=== PATIENT | female | born 1945 | race Caucasian/White ===

== ENCOUNTER → 2021-01-07 | Day surgery (SDC) | payer MEDICARE ==
[~2021-01-07] MED LIST: AMLODIPINE BESY10 MG PO; FLONASE 0.05% N16 GM; GABAPENTIN300 MG PO; GLUCOPHAGE 500500 MG PO; HYDROCODON-ACE1 EAC4 PO; KLONOPIN TAB 00.5 MG PO; METOPROLOL SUCC50 MG PO; NEXIUM20 MG PO; PAXIL 20 MG TAB20 MG PO; SPIRONOLACTONE50 MG PO; SYNTHROID50 MCG PO; VASCEPA1 GM PO
== END | disposition home or self-care (01) ==
LOC: OR 06:16
PROVIDERS: Surgery
PROC: 0JB70ZZ Excision of Back Subcutaneous Tissue and Fascia, Open Approach (ICD-10-PCS; principal; 2021-01-07 08:20)
DX: D17.1 Benign lipomatous neoplasm of skin and subcutaneous tissue of trunk (principal); I12.9 Hypertensive chronic kidney disease with stage 1 through stage 4 chronic kidney disease, or unspecified chronic kidney disease; E11.22 Type 2 diabetes mellitus with diabetic chronic kidney disease; N18.2 Chronic kidney disease, stage 2 (mild); E11.42 Type 2 diabetes mellitus with diabetic polyneuropathy; L93.0 Discoid lupus erythematosus; E78.5 Hyperlipidemia, unspecified; D50.9 Iron deficiency anemia, unspecified; K21.9 Gastro-esophageal reflux disease without esophagitis; K44.9 Diaphragmatic hernia without obstruction or gangrene; M19.90 Unspecified osteoarthritis, unspecified site; E03.9 Hypothyroidism, unspecified; Z79.84 Long term (current) use of oral hypoglycemic drugs; Z79.51 Long term (current) use of inhaled steroids; Z79.899 Other long term (current) drug therapy; Z88.2 Allergy status to sulfonamides; Z95.5 Presence of coronary angioplasty implant and graft; Z88.5 Allergy status to narcotic agent; Z88.8 Allergy status to other drugs, medicaments and biological substances; Z20.822 Contact with and (suspected) exposure to COVID-19; Z85.828 Personal history of other malignant neoplasm of skin
CPT/HCPCS: 82962; J0690; J1100; J2001; J2370; J2405; J2704; J3010; J7030; J7120

== ENCOUNTER → 2021-12-17 | Outpatient (CLI) | payer MEDICARE ==
[~2021-12-17] VITALS: Ht 165.1 cm; Wt 83.9 kg
== END ==
LOC: OPSV 13:00
DX: D64.9 Anemia, unspecified (principal)
CPT/HCPCS: 96365; J1756

== ENCOUNTER → 2021-12-24 | Outpatient (CLI) | payer MEDICARE | LOC: OPSV 12:00 | DX: D64.9 Anemia, unspecified (principal) | CPT/HCPCS: 96365; J1756 ==

== ENCOUNTER → 2021-12-31 | Outpatient (CLI) | payer MEDICARE ==
[~2021-12-31] VITALS: Ht 165.1 cm; Wt 83.9 kg
== END ==
LOC: OPSV 11:50
DX: D64.9 Anemia, unspecified (principal)
CPT/HCPCS: 96365; J1756

== ENCOUNTER → 2022-01-07 | Outpatient (CLI) | payer MEDICARE ==
[~2022-01-07] VITALS: Ht 165.1 cm; Wt 83.9 kg
== END ==
LOC: OPSV 10:50
DX: D64.9 Anemia, unspecified (principal)
CPT/HCPCS: 96365; J1756

== ENCOUNTER → 2022-01-10 | Outpatient (CLI) | payer MEDICARE | LOC: LAB 12:30 | DX: D64.9 Anemia, unspecified (principal) | CPT/HCPCS: 36415; 83540; 83550 ==